=== PATIENT | male | born 1995 | race American Indian/Alaskan Native ===

== ENCOUNTER 2020-12-11 09:51 | Emergency (ER) | payer SELFPAY ==
--- NOTE | 2020-12-11 11:51 | Event Note ---
ED Screening Note Date of service: 12/11/20 Time: 11:50 ED Screening Note: 25-year-old male patient presents to the emergency department with complaints of nausea, vomiting, and diarrhea for 3 days. Patient estimates he has had approximately 10 episodes of diarrhea in the last 24 hours. No known sick contacts. No current steroid or antibiotic use. No recent travel. No history of prior abdominal surgeries. No black/bloody stools. Tachycardic in triage. General: Awake, appropriately interactive, no acute distress. Neck: Supple. Full range of motion intact. Cardiovascular: Normal peripheral perfusion. Pulmonary: No respiratory distress. Patient is speaking normally without use of accessory muscles. Skin: No apparent rashes or lesions. Neurological: No facial asymmetry. Speech is clear. Follows commands. Patient is alert and oriented. Musculoskeletal: Moves all four extremities spontaneously with normal range of motion. Psych: Cooperative. Appropriate mood and affect. I have greeted and performed a focused rapid initial assessment of this patient. A comprehensive ED assessment and evaluation of the patient, analysis of all test results, and completion of the medical decision-making process will be conducted by additional ED providers. This initial assessment/diagnostic orders/clinical plan/treatment(s) is/are subject to change based on patients health status, clinical progression and re-assessment. Further treatment and workup at subsequent clinical provider's discretion. Patient/guardian urged not to elope from the ED as their condition may be serious if not clinically assessed and managed.
[2020-12-11 13:02] LABS: Hematocrit 55.5 % (35.5-45.6); Hemoglobin 18.7 gm/dl (11.8-15.2); Mean Corpuscular HGB Conc 34 % (32-34); Mean Corpuscular Volume 85 fl (84-94); Platelet Count 191 K/mm3 (140-440); Red Blood Count 6.52 M/mm3 (3.65-5.03); Red Cell Distribution Width 14.1 % (13.2-15.2)
[2020-12-11] MEDS ORDERED: DIPHENOXYLATE/ATROPINE TAB PO ONE (13:40)
[2020-12-11] MEDS ORDERED: ONDANSETRON 4 MG/2 ML INJ IV ONE (13:40)
[2020-12-11] MEDS ORDERED: SODIUM CHLORIDE 0.9% 1000 ML 1,000 ML IV ONE ×2 (13:40→14:11)
[2020-12-11 13:44] LABS: Alanine Aminotransferase 43 units/L (7-56); Albumin 4.4 g/dL (3.9-5); BUN/Creatinine Ratio 16; Blood Urea Nitrogen 18 mg/dL (9-20); Calcium 10.1 mg/dL (8.4-10.2); Hemolysis Index 25
--- NOTE | 2020-12-11 13:44 | Emergency Department Report ---
ED N/V/D HPI - General Chief complaint: Nausea/Vomiting/Diarrhea Stated complaint: BLK STOOL/DARK URINE/BODY PAIN/VOMIT/LOOSE STOOL PUI?: No Time Seen by Provider: 12/11/20 13:40 Source: patient Mode of arrival: Ambulatory Limitations: No Limitations - History of Present Illness Initial comments: CC: vomiting, diarrhea HPI: This is a healthy 25 yo male without significant past medical history who presents with abdominal pain, diarrhea, vomiting for several days. No sick contacts. He denies fever, headache, cough, body aches. PeptoBismol and Tylenoll provided minimal relief. He has been unable to tolerate food or drink. Diffuse abdominal discomfort described as a twisting sensation. Patient has had approximately 10 episodes of diarrhea in the last 24 hours. No recent travel. He is fully vaccinated for COVID-19. MD complaint: nausea, vomiting, diarrhea, abdominal pain -: Gradual, days(s) (3 days) Description of Vomiting: food contents Description of Diarrhea: water Associated Abdominal Pain: Yes Location: diffuse Severity: mild Quality: dull Consistency: intermittent Improves with: none Worsens with: none Associated Symptoms: nausea/vomiting - Related Data Previous Rx's Medication Instructions Recorded Last Taken Type Ciprofloxacin HCl 500 mg PO BID 3 Days #6 tablet 12/11/20 Unknown Rx Loperamide [Imodium] 2 tab PO QID 2 Days #16 capsule 12/11/20 Unknown Rx Promethazine [Phenergan] 25 mg PO Q6HR PRN #10 tab 12/11/20 Unknown Rx Allergies Allergy/AdvReac Type Severity Reaction Status Date / Time No Known Allergies Allergy Unverified 12/11/20 10:23 ED Review of Systems ROS: Stated complaint: BLK STOOL/DARK URINE/BODY PAIN/VOMIT/LOOSE STOOL Other details as noted in HPI Comment: All other systems reviewed and negative Constitutional: malaise. denies: chills, fever Respiratory: denies: cough, shortness of breath Gastrointestinal: abdominal pain, nausea, vomiting, diarrhea ED Past Medical Hx - Past Medical History Previous Medical History?: No - Surgical History Past Surgical History?: No - Family History Family history: hypertension - Social History Smoking Status: Never Smoker Substance Use Type: Alcohol - Medications Home Medications: Home Medications Medication Instructions Recorded Confirmed Last Taken Type Ciprofloxacin HCl 500 mg PO BID 3 Days #6 tablet 12/11/20 Unknown Rx Loperamide [Imodium] 2 tab PO QID 2 Days #16 capsule 12/11/20 Unknown Rx Promethazine [Phenergan] 25 mg PO Q6HR PRN #10 tab 12/11/20 Unknown Rx ED Physical Exam - General Limitations: No Limitations General appearance: alert, in no apparent distress - Head Head exam: Present: atraumatic, normocephalic - Eye Eye exam: Present: normal appearance - ENT ENT exam: Present: mucous membranes moist - Neck Neck exam: Present: normal inspection, full ROM - Respiratory Respiratory exam: Present: normal lung sounds bilaterally. Absent: respiratory distress, wheezes, rales, stridor - Cardiovascular Cardiovascular Exam: Present: regular rate, normal rhythm, normal heart sounds. Absent: systolic murmur, diastolic murmur, rubs, gallop - GI/Abdominal GI/Abdominal exam: Present: soft. Absent: distended, tenderness, guarding, rebound - Rectal Rectal exam: Present: deferred - Extremities Exam Extremities exam: Present: normal inspection - Neurological Exam Neurological exam: Present: alert, oriented X3 - Psychiatric Psychiatric exam: Present: normal affect, normal mood - Skin Skin exam: Present: warm, dry, intact, normal color. Absent: rash ED Course Vital Signs 12/11/20 10:24 Temperature 98.7 F Pulse Rate 111 H Respiratory 18 Rate Blood Pressure 117/68 O2 Sat by Pulse 98 Oximetry ED Medical Decision Making - Lab Data Result diagrams: 12/11/20 12:04 12/11/20 12:04 - Medical Decision Making This is a 72-year-old male who presents with abdominal pain vomiting diarrhea: No abdominal tenderness fever or leukocytosis to indicate appendicitis or cholecystitis. Clinical impression viral syndrome such as influenza versus food poisoning due to severe symptoms Considering severity and duration, patient given prescription for ciprofloxacin for possible invasive bacterial infection Patient was prescribed promethazine and loperamide. Hemoconcentration elevated hemoglobin hematocrit indicative of volume contraction dehydration. Mr. Cary politely declined IV fluid therapy. He elected to attempt to rehydrate orally at home. Patient also given referral to outpatient medicine physician. I have reviewed labs. Chemistry unremarkable. White count 9.9 K Critical care attestation.: If time is entered above; I have spent that time in minutes in the direct care of this critically ill patient, excluding procedure time. ED Disposition Clinical Impression: Food poisoning, Viral syndrome Disposition: DC-01 TO HOME OR SELFCARE Is pt being admited?: No Does the pt Need Aspirin: No Condition: Stable Instructions: Viral Illness, Adult, Food Poisoning Prescriptions: Ciprofloxacin HCl 500 mg PO BID 3 Days #6 tablet Loperamide [Imodium] 2 tab PO QID 2 Days #16 capsule Promethazine [Phenergan] 25 mg PO Q6HR PRN #10 tab PRN Reason: Nausea Referrals: ASHLI DELGADILLO MD [Staff Physician] - 3-5 Days
[2020-12-11] MEDS ORDERED: ONDANSETRON 4 MG ODT TAB PO ONE (13:47)
[2020-12-11 14:34] LABS: Band Neutrophils # (Manual) 0.1 K/mm3; Platelet Estimate Consistent w Auto; RBC Morphology Normal; Total Cells Counted 100
[2020-12-11 14:49] VITALS: BP 120/82
== END 2020-12-11 14:54 | disposition home or self-care (01) ==
LOC: ED 09:51
DX: T62.91XA Toxic effect of unspecified noxious substance eaten as food, accidental (unintentional), initial encounter (principal); Y92.89 Other specified places as the place of occurrence of the external cause; B34.9 Viral infection, unspecified; R53.81 Other malaise; I10 Essential (primary) hypertension
CPT/HCPCS: 36415; 80053; 82550; 83690; 83735; 85007; 85025; 96360; 99283; J7030; Q0162

== ENCOUNTER 2020-12-13 13:29 | Emergency (ER) | payer SELFPAY ==
--- NOTE | 2020-12-13 13:59 | Event Note ---
ED Screening Note Date of service: 12/13/20 Time: 13:58 ED Screening Note: Patient complains of shortness of breath x2 days States pain in chest with inspiration Cough, denies hemoptysis + Patient vaccinated against Covid This initial assessment/diagnostic orders/clinical plan/treatment(s) is/are subject to change based on patients health status, clinical progression and re- assessment by fellow clinical providers in the ED. Further treatment and workup at subsequent clinical providers discretion. Patient/guardian urged not to elope from the ED as their condition may be serious if not clinically assessed and managed. Initial orders include:
[2020-12-13 14:41] LABS: Hemoglobin 18.8 gm/dl (11.8-15.2); Mean Corpuscular HGB Conc 35 % (32-34); Mean Corpuscular Volume 84 fl (84-94); Platelet Count 186 K/mm3 (140-440); Red Blood Count 6.42 M/mm3 (3.65-5.03); Red Cell Distribution Width 14.3 % (13.2-15.2)
--- NOTE | 2020-12-13 14:56 | XRay Report ---
CHEST 2 VIEWS INDICATION / CLINICAL INFORMATION: SOB, chest pain. COMPARISON: None available. FINDINGS: SUPPORT DEVICES: None. HEART / MEDIASTINUM: No significant abnormality. LUNGS / PLEURA: No significant pulmonary or pleural abnormality. No pneumothorax. ADDITIONAL FINDINGS: No significant additional findings. IMPRESSION: 1. No acute findings. Signer Name: Arden Amezquita MD Signed: 12/13/2020 2:51 PM Workstation Name: [id number]
[2020-12-13 15:11] LABS: Alanine Aminotransferase 36 units/L (7-56); Albumin 3.7 g/dL (3.9-5); BUN/Creatinine Ratio 13; Blood Urea Nitrogen 13 mg/dL (9-20); Calcium 9.7 mg/dL (8.4-10.2); Hemolysis Index 35
[2020-12-13 15:21] LABS: Platelet Estimate Consistent w Auto; RBC Morphology Normal; Total Cells Counted 100
[2020-12-13] MEDS ORDERED: SODIUM CHLORIDE 0.9% 1000 ML 1,000 ML IV ONE ×2 (20:49→21:14)
[2020-12-13] MEDS ORDERED: ONDANSETRON 4 MG/2 ML INJ IV ONE (20:55)
[2020-12-13] MEDS ORDERED: fentaNYL 100 MCG/2 ML INJ IV ONE (21:04)
--- NOTE | 2020-12-13 21:14 | Emergency Department Report ---
HPI - General Chief Complaint: Dyspnea/Respdistress Time Seen by Provider: 12/13/20 13:57 - HPI HPI: Room 24 The patient is a 25-year-old male presenting with a chief complaint of shortness of breath and chest pain. Patient states for the past there is 3 days she has had intermittent substernal chest pain has been burning in nature and shortness of breath. Patient admits to pleurisy. Patient denies history of fever or cough. Patient states he received both shots of his Moderna Covid vaccination receiving the second dose in September 2020. Patient gives his pain a score of 9/10 ED Past Medical Hx - Past Medical History Previous Medical History?: No - Surgical History Past Surgical History?: No - Family History Family history: no significant - Social History Smoking Status: Never Smoker Substance Use Type: None (Denies illicit drug use), Alcohol (Occasional) - Medications Home Medications: Home Medications Medication Instructions Recorded Confirmed Last Taken Type Ciprofloxacin HCl 500 mg PO BID 3 Days #6 tablet 12/11/20 Unknown Rx Loperamide [Imodium] 2 tab PO QID 2 Days #16 capsule 12/11/20 Unknown Rx Promethazine [Phenergan] 25 mg PO Q6HR PRN #10 tab 12/11/20 Unknown Rx Albuterol Mdi (or & Nicu Only) 2 puff IH QID PRN #8.5 gram 12/13/20 Unknown Rx [ProAir HFA Inhaler] Ibuprofen [Motrin 800 MG tab] 800 mg PO Q8HR PRN #20 tablet 12/13/20 Unknown Rx traMADoL [Ultram] 50 mg PO Q6HR PRN #10 tablet 12/13/20 Unknown Rx ED Review of Systems ROS: Stated complaint: SOB/ WHILE SITTING STILL x2days Other details as noted in HPI Constitutional: denies: fever Eyes: denies: eye pain ENT: denies: throat pain Respiratory: shortness of breath. denies: cough Cardiovascular: chest pain Endocrine: no symptoms reported Gastrointestinal: denies: abdominal pain Genitourinary: denies: dysuria Musculoskeletal: denies: back pain Neurological: denies: headache Physical Exam - Physical Exam Vital Signs: Vital Signs 12/13/20 12/13/20 13:35 18:05 Temperature 98.3 F Pulse Rate 106 H 92 H Respiratory 20 16 Rate Blood Pressure 122/68 Blood Pressure 116/76 [Left] O2 Sat by Pulse 97 99 Oximetry Physical Exam: GENERAL: The patient is well-developed well-nourished male lying on stretcher not appearing to be in acute distress. [] HEENT: Normocephalic. Atraumatic. Extraocular motions are intact. Patient has moist mucous membranes. NECK: Supple. Trachea midline CHEST/LUNGS: Clear to auscultation. There is no respiratory distress noted. HEART/CARDIOVASCULAR: Regular. There is no tachycardia. There is no gallop rub or murmur. ABDOMEN: Abdomen is soft, nontender. Patient has normal bowel sounds. There is no abdominal distention. SKIN: There is no rash. There is no edema. There is no diaphoresis. NEURO: The patient is awake, alert, and oriented. The patient is cooperative. The patient has no focal neurologic deficits. The patient has normal speech MUSCULOSKELETAL: There is no evidence of acute injury. ED Course Vital Signs 12/13/20 12/13/20 13:35 18:05 Temperature 98.3 F Pulse Rate 106 H 92 H Respiratory 20 16 Rate Blood Pressure 122/68 Blood Pressure 116/76 [Left] O2 Sat by Pulse 97 99 Oximetry ED Medical Decision Making - Lab Data Result diagrams: 12/13/20 14:09 12/13/20 14:09 Laboratory Tests 12/13/20 12/13/20 12/13/20 14:09 14:09 14:09 WBC 8.7 RBC 6.42 H Hgb 18.8 H Hct 54.0 H MCV 84 MCH 29 MCHC 35 H RDW 14.3 Plt Count 186 [place] % (Auto) Go Go Dancer Add Manual Diff Complete Total Counted 100 Seg Neuts % (Manual) 72.0 H Lymphocytes % (Manual) 15.0 Reactive Lymphs % (Man) 2.0 Monocytes % (Manual) 9.0 H Eosinophils % (Manual) 2.0 Nucleated RBC % Not Reportable Seg Neutrophils # Man 6.3 Band Neutrophils # 0.0 Lymphocytes # (Manual) 1.3 Abs React Lymphs (Man) 0.2 Monocytes # (Manual) 0.8 Eosinophils # (Manual) 0.2 Basophils # (Manual) 0.0 Metamyelocytes # 0.0 Myelocytes # 0.0 Promyelocytes # 0.0 Blast Cells # 0.0 WBC Morphology Not Reportable Hypersegmented Neuts Not Reportable Hyposegmented Neuts Not Reportable Hypogranular Neuts Not Reportable Smudge Cells Not Reportable Toxic Granulation Not Reportable Toxic Vacuolation Not Reportable Dohle Bodies Not Reportable Pelger-Huet Anomaly Not Reportable Carlos Rods Not Reportable Platelet Estimate Consistent w auto Clumped Platelets Not Reportable Plt Clumps, EDTA Not Reportable Large Platelets Not Reportable Giant Platelets Not Reportable Platelet Satelliting Not Reportable Plt Morphology Comment Not Reportable RBC Morphology Normal Dimorphic RBCs Not Reportable Polychromasia Not Reportable Hypochromasia Not Reportable Poikilocytosis Not Reportable Anisocytosis Not Reportable Microcytosis Not Reportable Macrocytosis Not Reportable Spherocytes Not Reportable Pappenheimer Bodies Not Reportable Sickle Cells Not Reportable Target Cells Not Reportable Tear Drop Cells Not Reportable Ovalocytes Not Reportable Helmet Cells Not Reportable [place] Bodies Not Reportable [place] Rings Not Reportable [place] Cells Not Reportable Bite Cells Not Reportable Crenated Cell Not Reportable Elliptocytes Not Reportable Acanthocytes (Spur) Not Reportable Rouleaux Not Reportable Hemoglobin C Crystals Not Reportable Schistocytes Not Reportable Malaria parasites Not Reportable [place] Bodies Not Reportable Hem Pathologist Commnt No Sodium 135 L Potassium 3.7 Chloride 100.5 Carbon Dioxide 11 L D Anion Gap 27 BUN 13 Creatinine 1.0 Estimated GFR > 60 BUN/Creatinine Ratio 13 Glucose 68 L Calcium 9.7 Total Bilirubin 1.10 AST 61 H ALT 36 Alkaline Phosphatase 80 Troponin T < 0.010 NT-Pro-B Natriuret Pep < 5 Total Protein 7.5 Albumin 3.7 L Albumin/Globulin Ratio 1.0 - EKG Data -: EKG Interpreted by Me EKG shows normal: sinus rhythm Rate: normal - EKG Data When compared to previous EKG there are: previous EKG unavailable Interpretation: other (No ischemic changes seen) - Radiology Data Radiology results: report reviewed (Chest x-ray, CT chest), image reviewed (Chest x-ray, CT chest) interpreted by me: Chest x-ray-no focal infiltrates, no pneumothorax. No foreign body seen [facility] [address] [place] [address] XRay Report Signed Patient: NUSRAT MESSINA MR#: [id number] : 1995 Acct:[id number] Age/Sex: 25 / M ADM Date: 12/13/20 Loc: ED Attending Dr: Ordering Physician: ROSELYN KUMAR Date of Service: 12/13/20 Proced ure(s): XR chest routine 2V Accession Number(s): [id number] cc: ROSELYN KUMAR Fluoro Time In Minutes: CHEST 2 VIEWS INDICATION / CLINICAL INFORMATION: SOB, chest pain. COMPARISON: None available. FINDINGS: SUPPORT DEVICES: None. HEART / MEDIASTINUM: No significant abnormality. LUNGS / PLEURA: No significant pulmonary or pleural abnormality. No pneumothorax. ADDITIONAL FINDINGS: No significant additional findings. IMPRESSION: 1. No acute findings. Signer Name: Arden Amezquita MD Signed: 12/13/2020 2:51 PM Workstation Name: [id number] Transcribed By: CW Dictated By: EDGAR AMEZQUITA MD Electronically Authenticated By: EDGAR AMEZQUITA MD Signed Date/Time: 12/13/201450 DD/ 50 TD/TT: [place] [address] Cat Scan Report Signed Patient: NUSRAT MESSINA MR#: [id number] : 1995 Acct:[id number] Age/Sex: 25 / M ADM Date: 12/13/20 Loc: ED Attending Dr: Ordering Physician: ARETHA QUARLES MD Date of Service: 12/13/20 Procedure(s): CT angio chest Accession Number(s): [id number] cc: ARETHA QUARLES MD CTA CHEST WITH CONTRAST INDICATION / CLINICAL INFORMATION: Pleurisy, shortness of breath. TECHNIQUE: Axial CT images were obtained through the chest after injection of IV contrast. 3 plane MIP and/or 3D reconstructions were produced. All CT scans at this location are performed using CT dose reduction for ALARA by means of automated exposure control. COMPARISON: None available. FINDINGS: The pulmonary arteries are patent without filling defect or evidence for PTE. Heart and aorta appear normal. No mediastinal or hilar adenopathy. Trachea appears normal. No focal consolidation pleural effusion or pneumothorax. IMPRESSION: 1. No CT evidence for pulmonary embolism. 2. No acute findings. Signer Name: Arden Amezquita MD Signed: 12/13/2020 10:14 PM Workstation Name: [id number] Transcribed By: CW Dictated By: EDGAR AMEZQUITA MD Electronically Authenticated By: EDGAR AMEZQUITA MD Signed Date/Time: 12/13/202213 DD/ 12 TD/TT: Print - Differential Diagnosis Pleurisy, PE, CHF, ACS, COVID-19, Critical care attestation.: If time is entered above; I have spent that time in minutes in the direct care of this critically ill patient, excluding procedure time. ED Disposition Clinical Impression: Pleurisy, Atypical chest pain Disposition: TO HOME OR SELFCARE Is pt being admited?: No Does the pt Need Aspirin: No Condition: Stable Instructions: Nonspecific Chest Pain, Adult Additional Instructions: Return to the emergency department should you develop worsening symptoms, inability to tolerate food or liquids, high fever or any other concerns Prescriptions: Ibuprofen [Motrin 800 MG tab] 800 mg PO Q8HR PRN #20 tablet PRN Reason: Pain, Moderate (4-6) Albuterol Mdi (or & Nicu Only) [ProAir HFA Inhaler] 2 puff IH QID PRN #8.5 gram PRN Reason: Shortness Of Breath traMADoL [Ultram] 50 mg PO Q6HR PRN #10 tablet PRN Reason: Pain Referrals: PRIMARY CARE, [Primary Care Provider] - 3-[address] [facility] [Provider Group] - 3-5 Days BLANKA VALLE MD [Staff Physician] - 3-5 Days (Dr. Alejandre is a pulmon ologist. Please follow-up with him for further evaluation if your symptoms persist) Time of Disposition: 22:56
--- NOTE | 2020-12-13 22:19 | Cat Scan Report ---
CTA CHEST WITH CONTRAST INDICATION / CLINICAL INFORMATION: Pleurisy, shortness of breath. TECHNIQUE: Axial CT images were obtained through the chest after injection of IV contrast. 3 plane MN P and/or 3D reconstructions were produced. All CT scans at this location are performed using CT dose reduction for ALARA by means of automated exposure control. COMPARISON: None available. FINDINGS: The pulmonary arteries are patent without filling defect or evidence for PTE. Heart and aorta appear normal. No mediastinal or hilar adenopathy. Trachea appears normal. No focal consolidation pleural ef fusion or pneumothorax. IMPRESSION: 1. No CT evidence for pulmonary embolism. 2. No acute findings. Signer Name: Arden Amezquita MD Signed: 12/13/2020 10:14 PM Workstation Name: [id number]
[2020-12-14 00:17] VITALS: BP 119/72
--- NOTE | 2020-12-14 14:32 | Electrocardiograph Report ---
[facility] Test Date: 2020-12-13 Test Time: 21:23:55 Pat Name: NUSRAT MESSINA Department: Room: Gender: M Ash Collector: Yee COTA : 1995 Requested By: ROSELYN KUMAR Order Number: [id number] Reading MD: Doretha Vasquez Measurements Intervals [place] Rate: 81 P: 71 MS: 146 QRS: -60 QRSD: 96 T: 48 QT: 378 QTc: 438 Interpretive Statements Sinus rhythm Left axis deviation Incomplete right bundle branch block No previous ECG available for comparison Electronically Signed On 12-14-2020 14:32:27 EDT by Doretha Vasquez
== END 2020-12-14 00:18 | disposition home or self-care (01) ==
LOC: ED 13:29
DX: R09.1 Pleurisy (principal); R07.89 Other chest pain; Z79.899 Other long term (current) drug therapy
CPT/HCPCS: 36415; 71046; 71275; 80053; 83880; 84484; 85007; 85025; 93005; 96361; 96374; 96375; 99284; J2405; J3010; J7030; Q9967